=== PATIENT | male | born 1970 | race Caucasian/White ===

== ENCOUNTER 2018-04-18 23:41 | Emergency (ER) | payer MEDICARE ==
[~2018-04-18] VITALS: Ht 193 cm; Wt 143.2 kg
[2018-04-18 23:50] VITALS: Ht 193 cm; Wt 143.2 kg
[2018-04-18] MEDS ORDERED: LISINOPRIL2.5 MG (23:51)
[2018-04-18] MEDS ORDERED: THYROID MEDS (23:51)
[2018-04-18] MEDS ORDERED: LIPITOR20 MG (23:52)
[2018-04-18] MEDS ORDERED: DEPRESSION MEDS (23:52)
[2018-04-18] MEDS ORDERED: COLACE100 MG (23:52)
[2018-04-19 00:37] LABS: BASOPHILS 0.5 % (0-2); EOSINOPHILS 1.6 % (0-7); HEMATOCRIT 43.2 % (42.0-54.0); HEMOGLOBIN 14.9 g/dL (13.5-17.5); IMMATURE GRANULOCYTES 0.5 % (0-5); LYMPHOCYTES 30.8 % (15-50); MCH 30.1 pg (26.0-34.0); MCHC 34.5 g/dL (31.0-37.0); MCV 87.3 fL (80.0-100.0); MEAN PLATELET VOLUME 10.7 fL (7.4-10.4); MONOCYTES 5.9 % (2-11); NEUTROPHILS 60.7 % (40-80); PLATELET COUNT 139 10x3/uL (130-400); RBC 4.95 10x6/uL (4.20-6.10); RDW 14.4 % (11.5-14.5); WBC 8.3 10x3/uL (4.8-10.8)
[2018-04-19 00:49] LABS: ALBUMIN 3.3 g/dL (3.4-5.0); ANION GAP 15.7 mmol/L (8-16); BILIRUBIN - TOTAL 0.45 mg/dL (0.2-1.3); CALCIUM 9.7 mg/dL (8.5-10.1); CARBON DIOXIDE 24.6 mmol/L (21.0-32.0); CREATININE - SERUM 1.5 mg/dL (0.6-1.3); POTASSIUM - SERUM 4.3 mmol/L (3.5-5.1); PROTEIN - SERUM 7.1 g/dL (6.4-8.2)
[2018-04-19] MEDS ORDERED: XARELTO15 MG PO (00:57)
[2018-04-19 01:26] VITALS: BP 120/80
== END 2018-04-19 01:26 | disposition home or self-care (01) ==
LOC: D.ER 23:41
PROVIDERS: Family Medicine
DX: I82.4Z1 Acute embolism and thrombosis of unspecified deep veins of right distal lower extremity (principal); E11.65 Type 2 diabetes mellitus with hyperglycemia; Z86.718 Personal history of other venous thrombosis and embolism; Z85.6 Personal history of leukemia; Z86.711 Personal history of pulmonary embolism; R22.41 Localized swelling, mass and lump, right lower limb

== ENCOUNTER 2018-10-16 23:20 | Emergency (ER) | payer MEDICARE ==
[~2018-10-16] VITALS: Ht 193 cm; Wt 141.4 kg
[~2018-10-16 23:20] MED LIST: COLACE100 MG; DEPRESSION MEDS; LIPITOR20 MG; LISINOPRIL2.5 MG; THYROID MEDS; XARELTO15 MG PO
[2018-10-16 23:25] VITALS: BP 126/85; Ht 193 cm; Wt 141.4 kg
[2018-10-17 00:20] LABS: BASOPHILS 0.3 % (0-2); EOSINOPHILS 2.3 % (0-7); HEMATOCRIT 43.6 % (42.0-54.0); HEMOGLOBIN 14.8 g/dL (13.5-17.5); IMMATURE GRANULOCYTES 0.2 % (0-5); LYMPHOCYTES 32.3 % (15-50); MCH 28.8 pg (26.0-34.0); MCHC 33.9 g/dL (31.0-37.0); MCV 84.8 fL (80.0-100.0); MONOCYTES 5.7 % (2-11); NEUTROPHILS 59.2 % (40-80); PLATELET COUNT 141 10x3/uL (130-400); RBC 5.14 10x6/uL (4.20-6.10); WBC 9.7 10x3/uL (4.8-10.8)
[2018-10-17 00:24] LABS: APPEARANCE HAZY (CLEAR); BACTERIA NONE SEEN /hpf (NONE SEEN); BILIRUBIN NEGATIVE (NEGATIVE); COLOR PINK (YELLOW); EPITHELIAL CELLS NSEEN /hpf (0-5); GLUCOSE NEGATIVE (NEGATIVE); KETONE NEGATIVE (NEGATIVE); NITRITE NEGATIVE (NEGATIVE); PROTEIN 1+ mg/dL (NEGATIVE); RED CELLS - URINE >50 /hpf (0-5); SPECIFIC GRAVITY 1.005 (1.005-1.020); UROBILINOGEN NORMAL (NORMAL); WHITE CELLS - URINE NSEEN /hpf (0-5)
[2018-10-17 00:27] LABS: ALBUMIN 3.5 g/dL (3.4-5.0); ANION GAP 10.7 mmol/L (8-16); BILIRUBIN - TOTAL 0.54 mg/dL (0.2-1.3); CALCIUM 9.6 mg/dL (8.5-10.1); CARBON DIOXIDE 28.4 mmol/L (21.0-32.0); CREATININE - SERUM 1.5 mg/dL (0.6-1.3); POTASSIUM - SERUM 4.1 mmol/L (3.5-5.1); PROTEIN - SERUM 6.8 g/dL (6.4-8.2)
[2018-10-17 00:31] LABS: APTT 31.1 SECONDS (22.8-39.4); INR 1.16 (0.85-1.17); PROTIME 14.3 SECONDS (11.6-15.0)
== END 2018-10-17 03:25 | disposition left against medical advice (07) ==
LOC: D.ER 23:20
PROVIDERS: Emergency Medicine
DX: R31.9 Hematuria, unspecified (principal)

== ENCOUNTER → 2018-10-20 17:19 | Outpatient (CLI) | payer MEDICARE ==
[2018-10-16 23:25] VITALS: BMI 37.9
[2018-10-26 19:06] LABS: AEROBE ID Preliminary report (())
== END | disposition home or self-care (01) ==
LOC: D.LABREF 17:19
PROVIDERS: ATTEND Urology
DX: R31.9 Hematuria, unspecified (principal)

== ENCOUNTER 2018-11-13 08:17 | Day surgery (SDC) | payer MEDICARE ==
[~2018-11-13 08:17] MED LIST changes: +EFFEXOR XR75 MG PO; +LEVOTHYROXINE150 MCG PO; +NOVOLOG100 UNIT/1 SC
[2018-11-13 08:54] LABS: HEMATOCRIT 46.4 % (42.0-54.0); MCH 29.1 pg (26.0-34.0); MCHC 34.5 g/dL (31.0-37.0); MCV 84.5 fL (80.0-100.0); MEAN PLATELET VOLUME 10.1 fL (7.4-10.4); RBC 5.49 10x6/uL (4.20-6.10); RDW 14.4 % (11.5-14.5); WBC 8.2 10x3/uL (4.8-10.8)
[2018-11-13 08:58] LABS: CALCIUM 10.2 mg/dL (8.5-10.1); CARBON DIOXIDE 26.4 mmol/L (21.0-32.0); CREATININE - SERUM 1.6 mg/dL (0.6-1.3); POTASSIUM - SERUM 4.4 mmol/L (3.5-5.1)
[2018-11-13] MEDS ORDERED: LANTUS INSULIN10 ML SC (09:24)
[2018-11-13] MEDS ORDERED: LYRICA100 MG PO (09:25)
[2018-11-13 09:26] VITALS: BP 108/69; BMI 38.0
--- NOTE | 2018-11-13 14:00 | NUR ---
OPA IN AIRWAY ON ADMIT
--- NOTE | 2018-11-13 14:20 | NUR ---
REC'D FROM RR. FAMILY AT BEDSIDE. KIM CASILLAS SERVED TO PT.
--- NOTE | 2018-11-13 14:30 | NUR ---
AMBULATED TO BATHROOM. VOIDED WITH OUT DIFFICULTY.
--- NOTE | 2018-11-13 15:10 | NUR ---
TOLERATED FL DIET. IV DC'D WITH CATHETER INTACT. WRITTEN AND VERBAL DC INST. GIVEN TO PT. VERBALIZED UNDERSTANDING.
--- NOTE | 2018-11-13 15:15 | NUR ---
DC'D HOME WITH FAMILY VIA PRIVATE VEHICLE, STABLE AT TIME OF DC.
--- NOTE | 2018-11-13 15:34 | OP ---
PATIENT NAME: RAYMOND LUNA MEDICAL RECORD: [id number] :68 [facility] DATE: SURGEON: TETO THOMAS MD DATE OF OPERATION: 11/13/2018 SURGEON: Teto Thomas MD ANESTHESIA: General anesthesia by JAMARCUS Bonner. DIAGNOSES: 1. Antonio hematuria. 2. Factor V Leiden deficiency with thrombotic tendency. PROCEDURE: Cystoscopy. FINDINGS: Nonobstructive prostate. Single ureteral orifices bilaterally. No bladder tumors. Recently passed ureteral stone found in the bladder, about 2-mm in size. ESTIMATED BLOOD LOSS: None. CLINICAL HISTORY: This is a 47-year-old male, who has a hypercoagulable state due to a factor V Leiden deficiency. He has a history of deep venous thrombosis. He is currently on oral Xarelto to prevent further DVTs. He has a family history of thrombotic tendency. 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 He has had a history of kidney stones in 2012. Urine cultures have shown no growth. He had an ultrasound of the abdomen, which showed right renal cyst and a fatty liver. He had CT scan of the abdomen and pelvis without contrast on 05/2018. This showed two right renal cysts with no stones and no hydronephrosis. Hepatosplenomegaly was also noted. His PSA is 0.4. He comes today to have cystoscopy done. HE IS ALLERGIC TO IGA IMMUNOGLOBULINS. He was given [employer] transportation escort to the OR. DESCRIPTION OF PROCEDURE: The patient was given induction of general anesthesia. He was then placed into dorsal lithotomy position and prepped and draped. A 17-[place] cystoscope with 30-degree lens was used for visualization. Findings are as outlined above. The most likely cause of the gross hematuria was passage of a tiny ureteral stone. I will see the patient in followup on a p.r.n. basis. The bladder was emptied through the scope sheath and the scope was removed. TRANSINT:[id number] Voice Confirmation ID: [id number] DOCUMENT ID: [id number] TETO THOMAS MD at 1534 CC: [id number] DICTATION DATE: 11/13/18 1336 MICROSYSTEMS ENGINEER: 11/13/18 1510 [id number] [place] [address]
== END 2018-11-13 15:15 | disposition home or self-care (01) ==
LOC: D.OPS 08:17 → D.PAN 10:45 → D.OPS 11:30
PROVIDERS: Anesthesiology; ATTEND Urology
DX: R31.0 Gross hematuria (principal); D68.51 Activated protein C resistance; Z86.718 Personal history of other venous thrombosis and embolism; Z79.01 Long term (current) use of anticoagulants; Z87.442 Personal history of urinary calculi; Z85.6 Personal history of leukemia; Z01.812 Encounter for preprocedural laboratory examination